=== PATIENT | male | born 1955 | race Native Hawaiian/Other Pacific Islander ===

== ENCOUNTER 2019-09-06 08:39 | Outpatient (CLI) | payer OTHER ==
[~2019-09-06] VITALS: Ht 190.5 cm; Wt 134.3 kg
== END 2019-09-06 19:23 | disposition home or self-care (01) ==
LOC: NM 08:39
DX: I25.10 Atherosclerotic heart disease of native coronary artery without angina pectoris (principal); I48.91 Unspecified atrial fibrillation
CPT/HCPCS: A9500; J2785